=== PATIENT | female | born 1990 | race Caucasian/White ===

== ENCOUNTER 2020-09-08 09:52 | Emergency (ER) | payer OTHER ==
[~2020-09-08] VITALS: Ht 154.9 cm; Wt 64.1 kg
[~2020-09-08 09:52] MED LIST: NOCURR
[2020-09-08 11:23] LABS: BASOPHILS % (AUTO) 0.4 % (0.0-2.0); EOSINOPHILS % (AUTO) 0.3 % (1.0-6.0); HEMATOCRIT 37.3 % (36-46); HEMOGLOBIN 12.3 g/dL (12.0-16.0); LYMPHOCYTES # (AUTO) 1.2 K/uL (1.0-4.8); MEAN CORPUSCULAR HEMOGLOBIN 28.3 pg (26.0-34.0); MEAN CORPUSCULAR VOLUME 86 fL (80-100); MONOCYTES # (AUTO) 0.4 K/uL (0.1-1.0); MONOCYTES % (AUTO) 6.8 % (2.0-9.0); NEUTROPHILS # (AUTO) 4.5 K/uL (1.8-7.7); NEUTROPHILS % (AUTO) 72.5 % (40.0-70.0); PLATELET COUNT (AUTO) 244 K/uL (150-450); RED BLOOD CELL COUNT(AUTO) 4.36 MIL/uL (4.00-5.20); RED CELL DISTRIBUTION WIDTH 12.4 % (11.5-14.5)
[2020-09-08 11:37] LABS: ANION GAP 12 mmol/L (8-16); CARBON DIOXIDE 23 mmol/L (22-29); CHLORIDE 101 mmol/L (98-107); CREATININE 0.67 mg/dL (0.60-1.30); GLOMERULAR FILTR. RATE CALC > 60 mL/min (>60); GLUCOSE,RANDOM 72 mg/dL (70-110); POTASSIUM 3.8 mmol/L (3.5-5.1); SODIUM SERUM 136 mmol/L (136-145); UREA NITROGEN, BLOOD 9 mg/dL (7-18)
[2020-09-08 11:43] LABS: ALANINE AMINOTRANSFERASE 22 U/L (12-78); ALBUMIN 4.6 g/dL (3.4-5.0); ALKALINE PHOSPHATASE 61 U/L (46-116); ASPARTATE AMINOTRANSFERASE 11 U/L (15-37); LIPASE 54 U/L (73-393); TOTAL PROTEIN, SERUM 7.7 g/dL (6.4-8.2)
[2020-09-08 11:55] LABS: APPEARANCE,URINE CLEAR (CLEAR); BILIRUBIN,URINE NEGATIVE (NEGATIVE); GLUCOSE, URINE (UA) NEGATIVE (NEGATIVE); KETONES,URINE >=80 mg/dL (NEGATIVE); LEUKOCYTE ESTERASE ,URINE NEGATIVE (NEGATIVE); NITRATE,URINE NEGATIVE (NEGATIVE); OCCULT BLOOD,URINE NEGATIVE (NEGATIVE); PROTEIN,URINE NEGATIVE (NEGATIVE); UROBILINOGEN,URINE 0.2 mg/dL (<=1.0)
[2020-09-08 13:34] LABS: FERRITIN 58 ng/mL (8-252); HCG,QUANTITATIVE < 1 mIU/mL (0-6)
[2020-09-08 14:00] VITALS: BP 141/71
[2020-09-08] MEDS ORDERED: SODIUM CHLORIDE 0.9% 1,000 ML IV ONE (14:15)
== END 2020-09-08 16:05 | disposition home or self-care (01) ==
LOC: EMS 09:56
DX: F45.8 Other somatoform disorders (principal); E86.0 Dehydration; F41.9 Anxiety disorder, unspecified
CPT/HCPCS: 36415; 71045; 80053; 81003; 82728; 83690; 84484; 84702; 85025; 93005; 96360; 99285; J7030

== ENCOUNTER 2024-09-04 03:19 | Inpatient (IN) | payer OTHER ==
[~2024-09-04] VITALS: Ht 154.9 cm; Wt 79.1 kg
[2024-09-04] MEDS ORDERED: METOCLOPRAMIDE HCL 5 MG/ML 2 ML VIAL IVP ONE (03:45)
[2024-09-04 03:52] LABS: PLATELET COUNT (AUTO) 309 K/uL (150-450); RED BLOOD CELL COUNT(AUTO) 4.43 MIL/uL (4.00-5.20); RED CELL DISTRIBUTION WIDTH 13.1 % (11.5-14.5); WHITE BLOOD COUNT (AUTO) 8.0 K/uL (4.5-11.0)
[2024-09-04 04:00] LABS: CALCIUM, TOTAL 9.0 mg/dL (8.8-10.5); CREATININE 0.79 mg/dL (0.60-1.30); GLOMERULAR FILTR. RATE CALC > 60 mL/min (>60); GLUCOSE,RANDOM 126 mg/dL (70-110); SODIUM SERUM 142 mmol/L (136-145); UREA NITROGEN, BLOOD 14 mg/dL (7-18)
[2024-09-04] MEDS: FAMOTIDINE 20 MG/2 ML VIAL IVP ONE (04:03)
[2024-09-04] MEDS: SODIUM CHLORIDE 0.9% 1,000 ML IV ONE (04:06)
[2024-09-04] MEDS: ONDANSETRON HCL 4 MG/2 ML VIAL IVP ONE (04:06)
[2024-09-04 04:09] LABS: ASPARTATE AMINOTRANSFERASE 23 U/L (15-37); HCG,QUANTITATIVE < 1 mIU/mL (0-6); TOTAL PROTEIN, SERUM 7.3 g/dL (6.4-8.2)
[2024-09-04] MEDS ORDERED: DEXAMETHASONE SOD PHOS 4 MG/ML VIAL ONE (06:14)
[2024-09-04] MEDS ORDERED: ROCURONIUM BROMIDE 10 MG/ML 5 ML VIAL ONE (06:14)
[2024-09-04] MEDS ORDERED: METOCLOPRAMIDE HCL 5 MG/ML 2 ML VIAL ONE (06:14)
[2024-09-04] MEDS ORDERED: MIDAZOLAM HCL 2 MG/2 ML VIAL ONE (06:14)
[2024-09-04] MEDS ORDERED: GLYCOPYRROLATE 0.2 MG/ML VIAL ONE (06:14)
[2024-09-04] MEDS ORDERED: PROPOFOL 1% 20 ML VIAL IVP ONE (06:14)
[2024-09-04] MEDS ORDERED: ACETAMINOPHEN/ISO-OSM 1000 MG/100 ML BOTTLE IV ONE (06:14)
[2024-09-04] MEDS ORDERED: KETOROLAC TROMETHAMINE 60 MG/2 ML VIAL IM ONE (06:14)
[2024-09-04] MEDS ORDERED: ONDANSETRON HCL 4 MG/2 ML VIAL ONE (06:14)
[2024-09-04] MEDS ORDERED: LIDOCAINE/PF 2% 5 ML VIAL ONE (06:14)
[2024-09-04] MEDS ORDERED: SUGAMMADEX SODIUM 200 MG/2 ML VIAL IVP ONE (06:14)
[2024-09-04] MEDS: ACETAMINOPHEN 650 MG/ISO-OSM 65 ML IV ONE (06:23)
[2024-09-04] MEDS: PIPERACILLIN/TAZO 3.375 GM/D5W 50 ML IV ONE (06:24)
[2024-09-04 06:27] LABS: APPEARANCE,URINE CLEAR (CLEAR); GLUCOSE, URINE (UA) NEGATIVE (NEGATIVE); LEUKOCYTE ESTERASE ,URINE NEGATIVE (NEGATIVE); NITRATE,URINE NEGATIVE (NEGATIVE); OCCULT BLOOD,URINE NEGATIVE (NEGATIVE); SPECIFIC GRAVITIY, URINE 1.023 (1.003-1.030)
[2024-09-04] MEDS ORDERED: RINGERS SOLUTION,LACTATED 1,000 ML IV ONE (11:17)
[2024-09-04 11:20] VITALS: BP 120/80; PULSE 80; RESP 18; TEMP 97.7; O2SAT 100
[2024-09-04] MEDS: ETHYL ALCOHOL 62% ANTISEPTIC NASAL SANITIZER 0.6 ML AMPUL NASAL ONE (11:35)
[2024-09-04] MEDS: CHLORHEXIDINE GLUCONATE 2% TOWELETTE [2'S/6'S] TP ONE (11:35)
[2024-09-04] MEDS: RINGERS SOLUTION,LACTATED 1,000 ML IV ONE (11:37)
[2024-09-04] MEDS ORDERED: BISACODYL 10 MG RECTAL RECTAL SUPPOSITORY PR PRN (12:15)
[2024-09-04] MEDS ORDERED: MORPHINE SULFATE 2 MG/ML SYRINGE IVP PRN (12:15)
[2024-09-04] MEDS ORDERED: HYDROCODONE/ACETAMINOPHEN 5-325 MG TABLET PO PRN (12:15)
[2024-09-04] MEDS ORDERED: ZOLPIDEM TARTRATE 5 MG TABLET PO PRN (12:15)
[2024-09-04] MEDS ORDERED: ONDANSETRON HCL 4 MG/2 ML VIAL IVP PRN (12:15)
[2024-09-04] MEDS ORDERED: ROPIVACAINE HCL/PF 0.2% 100 ML ED ONE (13:18)
[2024-09-04] MEDS: BUPIVACAINE 0.25%/EPI 1:200,000/PF 30 ML VIAL ONE (14:51)
[2024-09-04] MEDS: CYCLOBENZAPRINE HCL 10 MG TABLET PO ONE (15:04)
[2024-09-04] MEDS: PIPERACILLIN/TAZO 3.375 GM/D5W 50 ML IV SCH (16:16)
[2024-09-04] MEDS: HEPARIN SODIUM,PORCINE 5,000 UNITS/ML VIAL SQ SCH (16:22)
[2024-09-04 16:45] VITALS: BP 122/70; PULSE 68; RESP 18; TEMP 98.1; O2SAT 100
[2024-09-04 16:50] VITALS: PULSE 76; RESP 16; O2SAT 98
[2024-09-04 19:35] VITALS: BP 110/61; PULSE 67; RESP 18; TEMP 99.1; O2SAT 99
[2024-09-04] MEDS: ACETAMINOPHEN 325 MG TABLET PO PRN (20:07)
[2024-09-04] MEDS: DOCUSATE SODIUM 100 MG CAPSULE PO SCH (20:07)
[2024-09-05 04:53] VITALS: BP 115/67; PULSE 72; RESP 18; TEMP 98.2; O2SAT 98
[2024-09-05 07:03] LABS: PLATELET COUNT (AUTO) 307 K/uL (150-450); RED BLOOD CELL COUNT(AUTO) 4.32 MIL/uL (4.00-5.20); RED CELL DISTRIBUTION WIDTH 13.1 % (11.5-14.5); WHITE BLOOD COUNT (AUTO) 10.2 K/uL (4.5-11.0)
[2024-09-05 07:20] LABS: ASPARTATE AMINOTRANSFERASE 57 U/L (15-37); CALCIUM, TOTAL 9.1 mg/dL (8.8-10.5); CREATININE 0.77 mg/dL (0.60-1.30); GLOMERULAR FILTR. RATE CALC > 60 mL/min (>60); GLUCOSE,RANDOM 121 mg/dL (70-110); SODIUM SERUM 143 mmol/L (136-145); TOTAL PROTEIN, SERUM 7.1 g/dL (6.4-8.2); UREA NITROGEN, BLOOD 9 mg/dL (7-18)
[2024-09-05 08:04] VITALS: BP 109/60; PULSE 70; RESP 18; TEMP 99.7; O2SAT 100
[2024-09-05] MEDS: PANTOPRAZOLE SODIUM 40 MG DR TABLET PO SCH (08:23)
[2024-09-05] MEDS: LACTULOSE 20 GM/30 ML SOLUTION UDCUP PO SCH (14:34)
[2024-09-05] MEDS: MAG HYDROX/ALUMINUM HYD/SIMETH 30 ML SUSPENSION UDCUP PO PRN (15:59)
[2024-09-05 16:00] VITALS: BP 117/70; PULSE 80; RESP 20; TEMP 98.8; O2SAT 100
[2024-09-05] MEDS: MAGNESIUM HYDROXIDE SUSPENSION 30 ML UDCUP PO PRN (19:32)
[2024-09-05 19:55] VITALS: BP 112/69; PULSE 79; RESP 18; TEMP 99.7; O2SAT 100
[2024-09-05 21:09] VITALS: TEMP 98.4
[2024-09-06 04:50] VITALS: BP 114/58; PULSE 84; RESP 18; TEMP 99.3; O2SAT 100
[2024-09-06 08:03] VITALS: BP 103/52; PULSE 88; RESP 18; TEMP 98.2; O2SAT 98
[2024-09-06] MEDS ORDERED: [UNRECOGNIZED DRUG - CODE] PO (10:22)
[2024-09-06] MEDS ORDERED: AMOX-457 PO (10:22)
== END 2024-09-06 14:45 | disposition home or self-care (01) | DRG 263 ==
LOC: EMS 03:21 → EDH 06:43 → 6S 09:39 → 4E 14:52
PROVIDERS: ADMIT Internal Medicine; ATTEND Internal Medicine
PROC: 0FT44ZZ Resection of Gallbladder, Percutaneous Endoscopic Approach (ICD-10-PCS; principal; 2024-09-04 13:18)
DX: K80.00 Calculus of gallbladder with acute cholecystitis without obstruction (principal); E66.9 Obesity, unspecified; R73.9 Hyperglycemia, unspecified; F41.9 Anxiety disorder, unspecified; Z68.32 Body mass index [BMI] 32.0-32.9, adult
CPT/HCPCS: 76705; 80048; 80053; 80076; 81003; 83690; 84702; 85025; 87040; 87081; 88304; 96361; 96365; 96368; 96375; 99285; G0238; G0378; J0131; J1100; J1644; J1885; J2250; J2270; J2405; J2543; J2704; J2765; J2795; J3490; J7030; J7120; 36415-L1; 36415-TC; Z7610